=== PATIENT | male | born 1960 | race Caucasian/White ===

== ENCOUNTER 2020-02-29 13:02 | Outpatient (CLI) | payer OTHER, SELFPAY ==
--- NOTE | 2020-02-29 13:22 | XR_ITS ---
WS: [id number] ABDOMEN 1 VIEW(S) HISTORY: LOW BACK PAIN DYSURIA, HEMATURIA COMPARISON: None available. Normal bowel gas pattern. No suspicious calcifications or masses. No bone abnormality. XR/XR abdomen 1V* [id number] IMPRESSION: Normal abdomen.
== END 2020-02-29 13:03 | disposition home or self-care (01) ==
LOC: RADWPI 13:03
PROVIDERS: Family Provider Nurse Practitioner Family; PCP Nurse Practitioner Family; Visit Provider Nurse Practitioner Family
DX: M54.5 Low back pain (principal); R30.0 Dysuria; R31.9 Hematuria, unspecified
CPT/HCPCS: 74018

== ENCOUNTER → 2020-05-26 10:24 | Outpatient (BNVA) | payer OTHER, SELFPAY | PROVIDERS: Family Provider Nurse Practitioner Family; PCP Nurse Practitioner Family; Referring Provider Nurse Practitioner Family; Visit Provider Urology | DX: N40.1 Benign prostatic hyperplasia with lower urinary tract symptoms (principal); N20.1 Calculus of ureter; R33.8 Other retention of urine; Z87.448 Personal history of other diseases of urinary system | CPT/HCPCS: 80053; 81001 ==

== ENCOUNTER 2020-06-26 09:40 | Outpatient (CLI) | payer OTHER, SELFPAY ==
--- NOTE | 2020-06-26 09:45 | XRR_ITS ---
PROCEDURE INFORMATION: Exam: XR Abdomen, 1 View Exam date and time: 06/26/2020 9:54 AM Age: 59 years old Clinical indication: Condition or disease; Other: Stone TECHNIQUE: Imaging protocol: XR of the abdomen. Views: Frontal supine view of the abdomen. 1 View. COMPARISON: CR XR abdomen 1V* [id number] 02/29/2020 1:27 PM FINDINGS: Gastrointestinal tract: The bowel gas pattern is nonspecific. Air filled large bowel including distal rectal gas. Organs: Probable tiny calcification of 3 mm lower pole left kidney Bones/joints: Calcification left and right pelvis above the level of the ischial spine. Correlate. Other findings: The psoas margins are well-defined. XR/XR KUB [id number] IMPRESSION: The bowel gas pattern is nonspecific. Air filled large bowel including distal rectal gas.
== END 2020-06-26 09:41 | disposition home or self-care (01) ==
LOC: RAD 09:44
PROVIDERS: PCP Nurse Practitioner Family; Visit Provider Urology
DX: Z87.448 Personal history of other diseases of urinary system (principal); N39.0 Urinary tract infection, site not specified
CPT/HCPCS: 74018; 81001

== ENCOUNTER → 2020-06-28 09:24 | Outpatient (BNVA) | payer OTHER, SELFPAY | PROVIDERS: PCP Nurse Practitioner Family; Referring Provider Urology; Visit Provider Urology | DX: Z87.448 Personal history of other diseases of urinary system (principal) | CPT/HCPCS: 87635 ==

== ENCOUNTER 2020-07-03 11:25 | Day surgery (SDC) | payer OTHER, SELFPAY ==
[2020-06-30 13:32] VITALS: BMI 25.1
[2020-07-03] VITALS (7 sets, daily range): BP systolic 91–133; BP diastolic 59–84; PULSE 57–72; RESP 16–20; TEMP 36.4–36.6; O2SAT 96–100
[2020-07-03] MEDS: sodium chloride 0.9% 1,000 ML 30 ML IV (11:51)
--- NOTE | 2020-07-03 12:10 | P.HPUD_ITS ---
Surgery/Procedure H&P Update DATE OF PROCEDURE: July 03, 2020 DATE H&P PERFORMED: 06/26/20 H&P UPDATE INFORMATION: I have reviewed H&P completed within last 30 days, I have examined patient prior to procedure, No changes to prior documentation and [place] [facility] [place] indicated PREOP DIAGNOSIS: Cystolithiasis PLANNED PROCEDURE: Operation Date: 07/03/20 13:00 Proposed Procedures p Cystolitholapaxy 61016 Z87.448(Not Applicable) - Leo Gaytan MD
--- NOTE | 2020-07-03 13:00 | ANES.PREANE2 ---
Pre-Anesthetic Assessment Pre-Anesthetic Assessment: Height/Weight: Height 1.78 m Weight 79.379 kg Temp Pulse Resp BP Pulse Ox 97.6 F 61 18 112/73 96 07/03/20 11:42 07/03/20 11:42 07/03/20 11:42 07/03/20 11:42 07/03/20 11:42 Preop Diagnosis: Cystolithiasis Proposed Procedure: Operation Date: 07/03/20 13:00 Proposed Procedures p Cystolitholapaxy 34756 Z87.448(Not Applicable) - Leo Gaytan MD Was Beta Muna taken within 24 hours: N/A Last intake: Intake Last Liquid Date 07/03/20 Last Liquid Time 08:45 Last Solid Date 07/02/20 Last Solid Time 20:30 Social: Social History: No alcohol and No tobacco Exam: Pre-Anes Outpt Exam: alert, oriented x 3, clear to auscultation bilaterally and regular rate & rhythm Airway: Submandibular: WNL Cervical ROM: WNL MP: 1 History/ROS: No significant complaints Pulmonary: Pulmonary: None reported CV/HEM: CV/HEM: None reported : Comments: BPH, Renal Calculi (recurrent) Hepatic: Hepatic: None reported GI: GI: GERD Metabolic: Metabolic: None reported Musc/skel: Musc/skel: None reported Neuropsych: Neuropsych: None reported Anesthetic Plan: ASA status: 2 Anesthesia: General Meds/Allergies Current Medications: Current Medications Generic Name Dose Route Start Last Admin Trade Name Freq PRN Reason Stop Dose Admin Sodium Chloride 1,000 mls @ 30 ml s/hr 07/03/20 08:15 07/03/20 11:51 Sodium Chloride 0.9% IV 07/04/20 08:14 30 mls/hr .Q24H GILLIAN Administration PFSH Anesthesia PFSH: Medical History BPH loc w urin obs/LUTS Recurrent urinary tract infection Family History Mother Dementia Hypertension Social History Smoking and tobacco status: never smoked Alcohol intake: unknown Household members: spouse Marital status: Current occupational status: employed Data Anesthesia Cardiac Studies: No Data to Display
[2020-07-03] MEDS: levofloxacin-dextrose 5 % 500 MG/100 ML PREMIX 100 MG IV (13:06)
--- NOTE | 2020-07-03 14:01 | SUR.PHASEI ---
pt awake on ra trial now, vss good resp effort pt denies pain.
--- NOTE | 2020-07-04 17:36 | PM.OP ---
Operative Report Date of procedure: July 03, 2020 Pre-op Diagnosis: Cystolithiasis Post-op diagnosis: same Procedure Done: Cystolitholapaxy >2.5 cm Pathology: Stone fragments Surgeon: Lucila Anesthesia: General Estimated blood loss: <10 cc Urine output: Not measured Complications: None Findings: Many very small stones and a few moderate sized stones. Larger required fragmentation with manual lithotrite Condition: stable Disposition: PACU Brief History: Ashwin is a very pleasant 59-year-old white male recently evaluated for gross hematuria and was found to have a very large obstructing prostate on cystoscopy with multiple bladder stones. Also had significant bladder changes consistent with chronic obstruction. Had been placed on dual medical therapy for BPH. Was offered surgical intervention for prostate but elected instead to hopefully continue medications to full effect. Was willing to have a cystolitholapaxy to clear the stones. Procedure: After routine preoperative evaluation examination and obtaining of informed consent he was taken to the operating suite on 07/03/2020 where general anesthesia was administered without difficulty after appropriate timeout was performed, SCDs confirmed to be functioning, preoperative antibiotics administered, beta-jenny protocol confirmed. Prepped and draped in the usual sterile fashion in dorsolithotomy position pain careful attention to avoiding pressure points. 21 [place] cystoscope with 30 degree lens was introduced to the urethral meatus and advanced into the bladder under videoscopy. Bladder was systematically examined with the findings as described above. Had a very large intravesically protruding median lobe which made it somewhat difficult to identify the stones underneath the lip of the prostate. He was placed in fairly steep Trendelenburg. A 25 [place] cystoscope sheath was utilized for clearance of the small stones with an Ellik evacuator with the bladder distended. The manual lithotrite was utilized to fragment the larger stones and a small enough pieces that were then also withdrawn from the bladder with an Ellik evacuator. All stones were confirmed to be cleared from the bladder and there was no mucosal trauma. He tolerated procedure well without complications and was awakened in the operating room and returned to the recovery room in stable condition. PLANS: 1. Discharge from outpatient surgery 2. Follow-up in approximately 3 months with flow rate PVR AUA symptom score or call sooner for increasing lower urinary tract symptoms
[2020-07-06 23:17] LABS: Stone Source NOT GIVEN
== END 2020-07-03 15:00 | disposition home or self-care (01) ==
PROVIDERS: PCP Nurse Practitioner Family; Visit Provider Urology
PROC: 0TCB8ZZ Extirpation of Matter from Bladder, Via Natural or Artificial Opening Endoscopic (ICD-10-PCS; CPT 52318; principal; 2020-07-03 13:00)
DX: N21.0 Calculus in bladder (principal); N40.0 Benign prostatic hyperplasia without lower urinary tract symptoms; K21.9 Gastro-esophageal reflux disease without esophagitis; N40.1 Benign prostatic hyperplasia with lower urinary tract symptoms
CPT/HCPCS: 52318; 12345; 82365; 88300; J1100; J1956; J2405; J2704; J2765; J3010; J7030

== ENCOUNTER 2020-10-12 09:07 | Outpatient (CLI) | payer OTHER, SELFPAY ==
--- NOTE | 2020-10-12 09:15 | XR_ITS ---
WS: [id number] KUB, 10/12/2020 Clinical Data: bladder stone Comparison: KUB, 06/26/2020. Findings: No abnormal intraabdominal masses or calcifications are seen. There is no dilatated small bowel or ev idence of obstruction. There is fecal material throughout the colon. The fecal material and air in the colon obscure detail over the kidneys. XR/XR KUB [id number] Impression: Negative KUB.
== END 2020-10-12 09:08 | disposition home or self-care (01) ==
PROVIDERS: PCP Nurse Practitioner Family; Visit Provider Urology
DX: N21.0 Calculus in bladder (principal)
CPT/HCPCS: 74018; 81003

== ENCOUNTER 2021-04-12 08:31 | Outpatient (CLI) | payer OTHER, SELFPAY ==
--- NOTE | 2021-04-12 08:30 | XR_ITS ---
WS: [id number] KUB, AP view, 04/12/2021 Clinical Data: bladder stone Comparison: KUB, 10/12/2020. Findings: No abnormal intraabdominal masses or calcifications are seen. There is no dilatated small bowel or ev idence of obstruction. There is fecal material in the colon which obscures detail over both kidneys. XR/XR KUB [id number] Impression: Negative KUB.
== END 2021-04-12 08:32 | disposition home or self-care (01) ==
LOC: RAD 08:35
PROVIDERS: PCP Nurse Practitioner Family; Visit Provider Urology
DX: N21.0 Calculus in bladder (principal)
CPT/HCPCS: 74018; 81003

== ENCOUNTER 2021-05-18 07:16 | Outpatient (CLI) | payer OTHER, SELFPAY ==
--- NOTE | 2021-05-18 07:21 | CT_ITS ---
WS: [id number] CT ABDOMEN PELVIS TECHNIQUE: Noncontrast CT of the abdomen and pelvis with coronal and sagittal reformatted images. CLINICAL INFORMATION: URIC ACID UROLITHIASIS COMPARISON: None. DLP: 1461.[address] scans at [facility] use at least one of these dose optimization techniques: automat ed exposure control; mA and/or kV adjustment per patient size (includes targeted exams where dose is matched to clinical indication); or iterative reconstruction. FINDINGS: Noncontrast liver is normal. Normal noncontrast spleen. Normal GE junction. Adrenal glands are normal . No hydronephrosis in either kidney. Adrenal glands are normal. No hydronephrosis in either kidney. No obstructing renal or ureteral calcu li. Normal GE junction. Lung bases are well aerated. Slight subsegmental atelectasis in the left lowe r lobe. Normal noncontrast pancreas. Normal gallbladder. Normal caliber abdominal aorta. Urine distended bladder. Prostate enlargement measuring 3.5 x 3.5 x 5.5 cm Recommend correlation PSA. Thickening of the seminal vesicles bilaterally. Sigmoid diverticulosis. No evidence of acute diverti culitis. No evidence of small or large bowel obstruction. Normal lumbar spine. CT/CT abdomen pelvis wo con [id number] IMPRESSION: 1. No hydronephrosis in either kidney. 2. No obstructing renal or ureteral calculi. 3. Enlarged prostate with indentation on the bladder. Prostate measures 3.5 x 3.5 x 5.5 cm Recommend correlation PSA. Urine distended bladder. 4. Thickening of the seminal vesicles bilaterally. No pelvic lymphadenopathy.
== END 2021-05-18 07:17 | disposition home or self-care (01) ==
LOC: CT 07:19
PROVIDERS: PCP Nurse Practitioner Family; Visit Provider Urology
DX: N20.9 Urinary calculus, unspecified (principal); N40.0 Benign prostatic hyperplasia without lower urinary tract symptoms
CPT/HCPCS: 74176; 81003

== ENCOUNTER → 2021-11-20 08:47 | Outpatient (BNVA) | payer OTHER, SELFPAY | PROVIDERS: PCP Nurse Practitioner Family; Visit Provider Urology | DX: N40.1 Benign prostatic hyperplasia with lower urinary tract symptoms (principal); N20.9 Urinary calculus, unspecified | CPT/HCPCS: 81003 ==

== ENCOUNTER → 2022-05-27 13:38 | Outpatient (BNVA) | payer OTHER, SELFPAY | PROVIDERS: PCP Nurse Practitioner Family; Visit Provider Urology | DX: N40.1 Benign prostatic hyperplasia with lower urinary tract symptoms (principal); N20.9 Urinary calculus, unspecified | CPT/HCPCS: 81003 ==